=== PATIENT | female | born 1985 | race Caucasian/White ===

== ENCOUNTER 2017-09-29 11:39 | Emergency (ER) | payer SELFPAY ==
[~2017-09-29] VITALS: Ht 167.6 cm; Wt 71.0 kg
[2017-09-29] MEDS ORDERED: KETOROLAC 30MG/ML VIAL IV STA (12:10)
[2017-09-29] MEDS ORDERED: SODIUM CHLORIDE 0.9% 1,000 ML IV ONE (12:10)
[2017-09-29] MEDS ORDERED: ONDANSETRON HCL 4MG/2ML VIAL IV STA (12:10)
[2017-09-29 12:36] LABS: CLARITY URINE CLOUDY (CLEAR); COLOR URINE DARK YELLOW (YELLOW); KETONES URINE 4+ (NEGATIVE); LEUKOCYTE ESTERASE URINE 1+ (NEGATIVE); NITRITE URINE NEGATIVE (NEGATIVE); OCCULT BLOOD URINE 3+ (NEGATIVE); PH URINE >=9.0 (4.5-8.0); PROTEIN URINE 2+ (NEGATIVE); SPECIFIC GRAVITY URINE 1.034 (1.005-1.030)
[2017-09-29 13:05] LABS: BASOPHILS % 0.4 % (0.0-2.0); HEMATOCRIT. 36.8 % (36.0-48.0); HEMOGLOBIN. 12.7 g/dL (12.0-16.0); LYMPHOCYTES % 13.5 % (20.0-50.0); MEAN CORPUSCULAR HEMOGLOBIN 29.6 pg (28.0-32.0); MEAN CORPUSCULAR VOLUME 85.9 fL (81.0-99.0); MEAN PLATELET VOLUME 9.2 fl (7.4-10.4); MONOCYTES % 8.1 % (2.0-8.0); PLATELET 247 x1000/uL (130-400); RED BLOOD CELL COUNT 4.29 mill/uL (4.2-5.4); RED CELL DISTRIBUTION WIDTH 13.6 % (11.6-14.6)
[2017-09-29 13:12] LABS: CHLORIDE 106 mEq/L (98-107)
[2017-09-29 13:14] LABS: HCG SCREEN NEGATIVE
[2017-09-29 13:15] LABS: INR 1.1; PROTHROMBIN TIME 11.5 sec (9.4-11.6)
[2017-09-29] MEDS ORDERED: IOHEXOL-300 100 ML BOTTLE ONE (14:20)
[2017-09-29] MEDS ORDERED: AZITHROMYCIN 500 MG TABLET PO ONE (15:15)
[2017-09-29] MEDS ORDERED: CEFTRIAXONE SODIUM 250 MG/VIAL IM ONE (15:15)
[2017-09-29 16:24] VITALS: BP 110/71
[2017-10-03 05:17] LABS: CHLAMYDIA TRACHOMATIS NAA Negative (Negative); NEISSERIA GONORRHOEAE NAA Negative (Negative)
== END 2017-09-29 16:42 | disposition home or self-care (01) ==
LOC: ER 12:23
DX: N39.0 Urinary tract infection, site not specified (principal); R11.2 Nausea with vomiting, unspecified; R10.9 Unspecified abdominal pain
CPT/HCPCS: 36415; 74177; 80053; 81001; 83690; 84703; 85025; 85610; 87210; 87491; 87591; 96361; 96372; 96374; 96375; 99285; J0696; J1885; J2405; J7030; Q9967; Z7610

== ENCOUNTER 2019-07-23 13:25 | Emergency (ER) | payer OTHER ==
[~2019-07-23] VITALS: Ht 167.6 cm; Wt 66.0 kg
[2019-07-23] MEDS ORDERED: ONDANSETRON HCL 4MG/2ML INJ IV STA (14:01)
[2019-07-23] MEDS ORDERED: MORPHINE SULFATE 4 MG/ML CPJ (NOT FOR IM USE) IV STA (14:01)
[2019-07-23] MEDS ORDERED: SODIUM CHLORIDE 0.9% 1,000 ML IV ONE (14:01)
[2019-07-23 14:27] LABS: BASOPHILS % 0.4 % (0.0-2.0); EOSINOPHILS % 0.1 % (0.0-5.0); HEMATOCRIT. 42.9 % (36.0-48.0); HEMOGLOBIN. 14.4 g/dL (12.0-16.0); LYMPHOCYTES % 11.5 % (20.0-50.0); MEAN CORPUSCULAR HEMOGLOBIN 29.6 pg (28.0-32.0); MEAN CORPUSCULAR VOLUME 88.2 fL (81.0-99.0); MEAN PLATELET VOLUME 9.1 fl (7.4-10.4); MONOCYTES % 4.6 % (2.0-8.0); NEUTROPHILS % 83.4 % (40.0-76.0); PLATELET 311 x1000/uL (130-400); RED BLOOD CELL COUNT 4.86 mill/uL (4.2-5.4); RED CELL DISTRIBUTION WIDTH 13.9 % (11.6-14.6)
[2019-07-23 14:43] LABS: HCG SCREEN NEGATIVE
[2019-07-23 14:51] LABS: CHLORIDE 108 mEq/L (98-107)
[2019-07-23] MEDS ORDERED: ONDANSETRON HCL 4MG/2ML INJ IV ONE (15:15)
[2019-07-23 16:06] LABS: CLARITY URINE CLOUDY (CLEAR); COLOR URINE YELLOW (YELLOW); KETONES URINE 4+ (NEGATIVE); LEUKOCYTE ESTERASE URINE 1+ (NEGATIVE); NITRITE URINE NEGATIVE (NEGATIVE); OCCULT BLOOD URINE TRACE (NEGATIVE); PH URINE 7.5 (4.5-8.0); PROTEIN URINE 1+ (NEGATIVE); SPECIFIC GRAVITY URINE 1.029 (1.005-1.030)
[2019-07-23] MEDS ORDERED: METOCLOPRAMIDE HCL 10MG/2ML VIAL IV ONE (16:15)
[2019-07-23] MEDS ORDERED: CEFTRIAXONE 1 G PREMIX 50 ML IV ONE (17:00)
[2019-07-23] MEDS ORDERED: IOHEXOL-300 100 ML BOTTLE ONE (17:30)
[2019-07-23 17:54] VITALS: BP 137/72
== END 2019-07-23 18:27 | disposition home or self-care (01) ==
LOC: ER 13:25
DX: N10 Acute pyelonephritis (principal); I10 Essential (primary) hypertension
CPT/HCPCS: 36415; 71045; 74177; 80053; 81003; 81025; 83690; 84703; 85025; 87086; 87804; 93005; 96361; 96365; 96375; 96376; 99284; J0696; J2270; J2405; J2765; J7030; Q9967; Z7610

== ENCOUNTER 2020-10-05 16:46 | Emergency (ER) | payer OTHER ==
[~2020-10-05] VITALS: Ht 167.6 cm; Wt 72.0 kg
[2020-10-05 16:47] VITALS: BP 120/78
[2020-10-05] MEDS ORDERED: IBUPROFEN 600MG TABLET PO ONE (17:15)
[2020-10-05] MEDS ORDERED: AMOXICILLIN/POTASSIUM CLAVULANATE 875/125MG TAB PO ONE (17:15)
[2020-10-05] MEDS ORDERED: BACITRACIN ZINC OINT UDPKT TOP ONE (17:15)
[2020-10-05] MEDS ORDERED: AMOX-424 MT (17:30)
[2020-10-05] MEDS ORDERED: IBUP-2029 MT (17:31)
[2020-10-05] MEDS ORDERED: TETANUS, DIPHTHERIA, PERTUSSIS VAC/PF 0.5ML (>7YR OLD) IM ONE (18:15)
== END 2020-10-05 19:14 | disposition home or self-care (01) ==
LOC: ER 17:01
DX: M79.622 Pain in left upper arm (principal); Z79.899 Other long term (current) drug therapy
CPT/HCPCS: 73110; 90471; 90715; 99284